=== PATIENT | male | born 1970 | race Caucasian/White ===

== ENCOUNTER → 2020-04-22 | Outpatient (CLI) | payer OTHER ==
[~2020-04-22] MED LIST: AEROCHAMBER1 EA XX; FLEXERIL 10 MG10 MG PO; VENTOLIN HFA 66.7 GM INH
== END ==
LOC: KOH-I 10:15
DX: R20.0 Anesthesia of skin (principal); E53.8 Deficiency of other specified B group vitamins
CPT/HCPCS: 72050; 73030

== ENCOUNTER → 2020-06-15 | Outpatient (CLI) | payer OTHER | LOC: ECHO 13:04 → NM 15:00 | DX: R07.9 Chest pain, unspecified (principal); R93.1 Abnormal findings on diagnostic imaging of heart and coronary circulation; R94.39 Abnormal result of other cardiovascular function study | CPT/HCPCS: ECHO; 93306 ==

== ENCOUNTER → 2020-07-22 | Outpatient (CLI) | payer OTHER | LOC: KOH-I 11:33 | DX: F33.1 Major depressive disorder, recurrent, moderate (principal); E53.8 Deficiency of other specified B group vitamins; H91.90 Unspecified hearing loss, unspecified ear; F41.9 Anxiety disorder, unspecified; R73.9 Hyperglycemia, unspecified; M51.34 Other intervertebral disc degeneration, thoracic region; M51.36 Other intervertebral disc degeneration, lumbar region | CPT/HCPCS: 72070; 72110 ==

== ENCOUNTER → 2020-09-29 | Outpatient (CLI) | payer OTHER | LOC: KOH-I 11:18 | DX: J44.9 Chronic obstructive pulmonary disease, unspecified (principal) | CPT/HCPCS: 71046 ==

== ENCOUNTER → 2020-12-05 | Outpatient (CLI) | payer OTHER | LOC: HEART 5 14:47 | DX: J44.9 Chronic obstructive pulmonary disease, unspecified (principal); F17.210 Nicotine dependence, cigarettes, uncomplicated; R94.2 Abnormal results of pulmonary function studies | CPT/HCPCS: 94010 ==

== ENCOUNTER → 2021-04-17 | Outpatient (CLI) | payer OTHER | LOC: KOH-I 14:01 | DX: M54.50 Low back pain, unspecified (principal); J44.9 Chronic obstructive pulmonary disease, unspecified; G56.01 Carpal tunnel syndrome, right upper limb; M51.36 Other intervertebral disc degeneration, lumbar region; M48.061 Spinal stenosis, lumbar region without neurogenic claudication | CPT/HCPCS: 72148 ==

== ENCOUNTER → 2021-08-21 | Outpatient (CLI) | payer OTHER | LOC: KOH-I 13:53 | DX: M54.50 Low back pain, unspecified (principal); E53.8 Deficiency of other specified B group vitamins; F33.1 Major depressive disorder, recurrent, moderate; E78.5 Hyperlipidemia, unspecified; J98.11 Atelectasis; R91.1 Solitary pulmonary nodule | CPT/HCPCS: 71046 ==

== ENCOUNTER → 2021-11-14 | Outpatient (CLI) | payer OTHER | LOC: CT 08:30 | DX: R91.1 Solitary pulmonary nodule (principal); F17.290 Nicotine dependence, other tobacco product, uncomplicated | CPT/HCPCS: 71270; Q9967 ==